=== PATIENT | male | born 1995 | race Caucasian/White ===

== ENCOUNTER 2018-05-28 22:34 | Emergency (ER) | payer OTHER, SELFPAY ==
[2018-05-28] MEDS ORDERED: TETANUS & DIPHTHERIA TOX,ADULT 0.5 ML VIAL ONE (23:46)
--- NOTE | 2018-05-28 23:55 | ER ---
Nurse's Notes [facility] Name: Yoshi Vital Age: 23 yrs Sex: Male : 1995 Arrival Date: 05/28/2018 Time: 22:40 Bed 20 Private MD: Diagnosis: Bitten by cat-Left foot Presentation: 05/28 23:02 Presenting complaint: Patient states: cat scratches to left foot 4 days ago. Reports tl2 slight redness and swelling. No fever. Transition of care: patient was not received from another setting of care. Onset of symptoms was May 24, 2018. Risk Assessment: Do you want to hurt yourself or someone else? Patient reports no desire to harm self or others. Initial Sepsis Screen: Does the patient meet any 2 criteria? No. Patient's initial sepsis screen is negative. Does the patient have a suspected source of infection? No. Patient's initial sepsis screen is negative. Care prior to arrival: None. 23:02 Method Of Arrival: Ambulatory tl2 23:02 Acuity: DOMINGA 4 tl2 Triage Assessment: 23:53 Bite description: bite sustained to left foot by a cat, animal information: jd3 vaccination(s) is current. Historical: - Allergies: 23:03 No Known Allergies; tl2 - Home Meds: 23:03 None [Active]; tl2 - PMHx: 23:03 None; tl2 - PSHx: 23:03 None; tl2 - Immunization history:: Adult Immunizations up to date. - Social history:: Smoking status: Patient uses tobacco products, smokes one-half pack cigarettes per day. - Ebola Screening: : No symptoms or risks identified at this time. Screenin:53 Abuse screen: Denies threats or abuse. Nutritional screening: No deficits noted. jd3 Tuberculosis screening: No symptoms or risk factors identified. Fall Risk Ambulatory Aid- None/Bed Rest/Nurse Assist (0 pts). Gait- Normal/Bed Rest/Wheelchair (0 pts) Mental Status- Oriented to own ability (0 pts). Total Pastor Fall Scale indicates No Risk (0-24 pts). Assessment: 23:51 General: Appears in no apparent distress. uncomfortable, Behavior is calm, cooperative, jd3 appropriate for age. Pain: Complains of pain in left foot Quality of pain is described as aching. Neuro: Level of Consciousness is awake, alert, obeys commands, Oriented to person, place, time, situation, Appropriate for age. Cardiovascular: Capillary refill < 3 seconds Patient's skin is warm and dry. Respiratory: Airway is patent Respiratory effort is even, unlabored, Respiratory pattern is regular, symmetrical. GI: No signs and/or symptoms were reported involving the gastrointestinal system. : No signs and/or symptoms were reported regarding the genitourinary system. EENT: No signs and/or symptoms were reported regarding the EENT system. Derm: Skin is intact, Skin is dry, Skin is normal, Skin temperature is warm Wound noted ball of left foot Wound is small wound from family cat. Musculoskeletal: Circulation, motion, and sensation intact. Range of motion: intact in all extremities. Vital Signs: 23:03 BP 140 / 93; Pulse 85; Resp 18; Temp 98.4(O); Pulse Ox 100% on R/A; Weight 56.7 kg; tl2 Height 5 ft. 11 in. (180.34 cm); Pain 2/10; 23:51 BP 130 / 77; Pulse 70; Resp 16 S; Pulse Ox 96% on R/A; jd3 23:03 Body Mass Index 17.43 (56.70 kg, 180.34 cm) tl2 ED Course: 22:40 Patient arrived in ED. am2 22:46 Balta Lyman PA is PHCP. cp 22:46 Sid Edmond MD is Attending Physician. cp 23:03 Triage completed. tl2 23:03 Arm band placed on right wrist. tl2 23:21 XRAY Foot LEFT 2 View In Process Unspecified. EDMS 23:33 Chapin Eid, PAVITHRA is Primary Nurse. jd3 23:54 Patient has correct armband on for positive identification. Bed in low position. Call jd3 light in reach. Side rails up X 1. 05/29 00:00 No provider procedures requiring assistance completed. Patient did not have IV access jd3 during this emergency room visit. Administered Medications: 05/28 23:40 Drug: Tetanus-Diphtheria Toxoid Adult 0.5 ml {Home Connect Lpn: [employer]. Exp: jd3 04/24/2020. Lot #: [id number]. } Route: IM; Site: right deltoid; 05/29 00:00 Follow up: Response: No adverse reaction jd3 00:00 Drug: Augmentin 875 mg Route: PO; jd3 00:01 Follow up: Response: Medication administered at discharge. jd3 Outcome: 05/28 23:54 Discharge ordered by MD. carey 05/29 00:00 Discharged to home ambulatory. jd3 Condition: stable Discharge instructions given to patient, Instructed on discharge instructions, follow up and referral plans. medication usage, Demonstrated understanding of instructions, follow-up care, medications, Prescriptions given X 1. 00:05 Patient left the ED. jd3 Signatures: Dispatcher [employer] EDMS Balta Lyman PA PA cp Knox, Taylor, RN RN tl2 Claudia Lazo am2 Chapin Eid RN RN jd3 Corrections: (The following items were deleted from the chart) 21:29 00:00 Discharge instructions given to patient, Instructed on discharge instructions, jd3 follow up and referral plans. medication usage, Demonstrated understanding of instructions, follow-up care, medications, Prescriptions given X 2, jd3
--- NOTE | 2018-05-28 23:55 | EDPHYS ---
Physician Documentation [facility] Name: Yoshi Vital Age: 23 yrs Sex: Male : 1995 Arrival Date: 05/28/2018 Time: 22:40 Bed 20 Private MD: ED Physician Sid Edmond HPI: 05/28 23:10 This 23 yrs old Male presents to ER via Ambulatory with complaints of Cat cp Bite. 23:10 The patient was bitten on the left foot, by a cat, while trying to stop animals from cp fighting, at home. Onset: The symptoms/episode began/occurred 4 day(s) ago. Animal information: The animal is known and can be quarantined. Secondary to the bite the patient reports multiple puncture wounds. Associated signs and symptoms: Pertinent negatives: fever. Historical: - Allergies: 23:03 No Known Allergies; tl2 - Home Meds: 23:03 None [Active]; tl2 - PMHx: 23:03 None; tl2 - PSHx: 23:03 None; tl2 - Immunization history:: Adult Immunizations up to date. - Social history:: Smoking status: Patient uses tobacco products, smokes one-half pack cigarettes per day. - Ebola Screening: : No symptoms or risks identified at this time. ROS: 23:10 Constitutional: Negative for body aches, chills, fever, poor PO intake. cp 23:10 Cardiovascular: Negative for chest pain. cp 23:10 Respiratory: Negative for cough, wheezing. 23:10 Abdomen/GI: Negative for abdominal pain, nausea, vomiting, and diarrhea. 23:10 Skin: Positive for of the left foot, multiple cat bites. 23:10 Neuro: Negative for headache, numbness, tingling, weakness. 23:10 All other systems are negative. Exam: 23:15 Constitutional: The patient appears in no acute distress, alert, awake, non-toxic, well cp developed, well nourished. 23:15 Head/Face: Normocephalic, atraumatic. cp 23:15 Eyes: Periorbital structures: appear normal, Conjunctiva: normal, no exudate, no injection, Lids and lashes: appear normal, bilaterally. 23:15 ENT: External ear(s): are unremarkable, Nose: is normal, Mouth: Lips: moist, Oral mucosa: moist, Posterior pharynx: Airway: no evidence of obstruction, patent. 23:15 Chest/axilla: Inspection: normal. 23:15 Cardiovascular: Rate: normal, Pulses: Pulses are 2+ in left dorsalis pedis artery. Edema: is not appreciated. 23:15 Respiratory: the patient does not display signs of respiratory distress, Respirations: normal. 23:15 Abdomen/GI: Exam negative for discomfort, distension, guarding, Inspection: abdomen appears normal. 23:15 Skin: cellulitis, that is mild, on the left foot, injury, that can be described as without bleeding, puncture(s), that are superficial, of the left foot, multiple. Vital Signs: 23:03 BP 140 / 93; Pulse 85; Resp 18; Temp 98.4(O); Pulse Ox 100% on R/A; Weight 56.7 kg; tl2 Height 5 ft. 11 in. (180.34 cm); Pain 2/10; 23:51 BP 130 / 77; Pulse 70; Resp 16 S; Pulse Ox 96% on R/A; jd3 23:03 Body Mass Index 17.43 (56.70 kg, 180.34 cm) tl2 MDM: 22:46 Patient medically screened. cp 23:00 Differential diagnosis: rabies, cellulitis, abscess, retained foreign body. cp 23:52 Counseling: I had a detailed discussion with the patient and/or guardian regarding: the cp historical points, exam findings, and any diagnostic results supporting the discharge/admit diagnosis, radiology results, to return to the emergency department if symptoms worsen or persist or if there are any questions or concerns that arise at home. 23:54 Data reviewed: vital signs, nurses notes, radiologic studies, plain films. cp 23:54 Test interpretation: by ED physician or midlevel provider: plain radiologic studies. cp 05/28 23:05 Order name: XRAY Foot LEFT 2 View cp 05/28 23:05 Order name: Wound Care; Complete Time: 23:51 cp Administered Medications: 23:40 Drug: Tetanus-Diphtheria Toxoid Adult 0.5 ml {[employer] Hel[employer]: [employer]. Exp: jd3 04/24/2020. Lot #: [id number]. } Route: IM; Site: right deltoid; 05/29 00:00 Follow up: Response: No adverse reaction jd3 00:00 Drug: Augmentin 875 mg Route: PO; jd3 00:01 Follow up: Response: Medication administered at discharge. jd3 Disposition: 00:30 Chart complete. cp 20:08 Co-signature as Attending Physician, Sid Edmond MD. rn Disposition: 05/28/18 23:54 Discharged to Home. Impression: Bitten by cat - Left foot. - Condition is Stable. - Discharge Instructions: Animal Bite. - Prescriptions for Augmentin 875- 125 mg Oral Tablet - take 1 tablet by ORAL route every 12 hours for 10 days; 20 tablet. - Medication Reconciliation Form, Thank You Letter, Antibiotic Education, Prescription Opioid Use, Work release form form. - Follow up: Private Physician; When: 48 Hours; Reason: Recheck today's complaints. - Problem is new. - Symptoms have improved. Signatures: Dispatcher [employer] EDMS Sid Edmond MD MD rn Balta Lyman PA PA cp Carmel Hunter RN RN tl2 Chapin Eid RN RN jd3 Corrections: (The following items were deleted from the chart) 00:05 05/28 23:54 05/28/2018 23:54 Discharged to Home. Impression: Bitten by cat - Left foot. jd3 Condition is Stable. Forms are Medication Reconciliation Form, Thank You Letter, Antibiotic Education, Prescription Opioid Use. Follow up: Private Physician; When: 48 Hours; Reason: Recheck today's complaints. Problem is new. Symptoms have improved. cp
[2018-05-29] MEDS ORDERED: AMOX/K CLAV 875 MG TAB ONE (00:08)
--- NOTE | 2018-05-29 08:08 | RAD REPORT ---
EXAM DESCRIPTION: RAD - Foot Left 2 View - 05/28/2018 11:20 pm CLINICAL HISTORY: cat bite Animal bite COMPARISON: No comparisons FINDINGS: Soft tissue swelling is seen in the region of the forefoot. No fracture, dislocation or fo reign body seen.
== END 2018-05-29 00:05 | disposition home or self-care (01) ==
LOC: ER 22:34
DX: S91.352A Open bite, left foot, initial encounter (principal); W55.01XA Bitten by cat, initial encounter; Y93.89 Activity, other specified; Y92.009 Unspecified place in unspecified non-institutional (private) residence as the place of occurrence of the external cause; F17.210 Nicotine dependence, cigarettes, uncomplicated; Z23 Encounter for immunization
CPT/HCPCS: 90714; 99283